=== PATIENT | male | born 1935 | race Caucasian/White ===

== ENCOUNTER 2020-10-13 11:01 | Inpatient (IN) | payer OTHER ==
[~2020-10-13] VITALS: Ht 172.7 cm
[~2020-10-13 11:01] MED LIST: ALTACE1.25 MG; ASPIR-LOW81 MG PO; ATORVASTATIN CA20 MG PO; DILTIAZE PO; DILTIAZEM HCL30 MG PO; LANTUS; LIPITOR20 MG PO; METHIMAZOLE10 MG PO; METOPROLOL SUC100 MG PO; METOPROLOL TAR100 MG PO; NEURONTIN300 MG PO; PROBIOTIC1 EAC1 PO
--- NOTE | 2020-10-13 11:08 | NUR ---
SE RECIBE PACIENTE ALERTE Y ORIENTADO. PACIENTE REFIERE VENIR POR QUE TIENE LA HEMOGLOBINA BAJA YA QUE SE REALIZO UN CBC EL JERAD DE HOY Y EL MISMO SALIO EN 6.3 ENVIADO POR DRA. GUATAM.
--- NOTE | 2020-10-13 12:21 | NUR ---
SE EJECTUA ORDEN MEDICA EN YBARRA TOTALIDAD. PACIENTE SE LE REALIZAN MUESTRAS DE OLGA, ADMINISTRACION DE TERAPIA INTRAVENOSA. SE LASHAUN TUBOS PILOTOS YA QUE PACIENTE TIENE ORDEN MEDICA DE TRANFUNDIR 3 UNIDADES DE PRBC FRACCIONADAS. SE REALIZA LLAMADA A BANCO DE [place] PARA SABER SI PACIENTE TIENE RECORDS PREVIO Y AL MOMENTO EL MISMO CUENTA YA CON EXPEDIENTE EN BANCO DE [place]. SE REQUISA PARA 3 UNIDADEAS DE OLGA FRACCIONADAS. FAMILIAR DE PACIENTE FIRMA CONSENTIMIENTO Y MEDICO TAMBIEN, DR. GUILLEN. SE ROTULAN TUBOS PILOTOS DE MANERA CORRECTA Y SE LLEVA A B[place] EN DONDE SON COTEJADAS POR SR. CANDELARIA DE BANCO DE [place] CUAL REFIERE ESTA TODO DE MANERA CORRECTA. AL MOMENTO SE MANTIENE PACIENTE EN OBSERVACION POR CAMBIOS EN CONDICON Y EN ESPERA DE SER TRANFUNDIDO.
[2020-10-14] MEDS ORDERED: INTEGRA PLUS C1 EACH (14:18)
[2020-10-14] MEDS ORDERED: METOPROLOL SUC100 MG (14:18)
[2020-10-14] MEDS ORDERED: FOLIC ACID1 MG (14:18)
[2020-10-14] MEDS ORDERED: DILTIAZEM HCL30 MG (14:18)
[2020-10-18] MEDS ORDERED: INTEGRA PLUS C1 EACH PO (13:20)
[2020-10-18] MEDS ORDERED: TOPROL XL100 M1 PO (13:20)
[2020-10-18] MEDS ORDERED: FAMOTIDINE20 MG PO (13:20)
[2020-10-18] MEDS ORDERED: AMLODIPINE BESYL5 MG PO (13:20)
[2020-10-18] MEDS ORDERED: B Complex CAPSULE PO (13:20)
[2020-10-18] MEDS ORDERED: APRESOLINE 10MG10 MG PO (13:20)
[2020-10-18] MEDS ORDERED: Neurin-Sl Tablet Sl SL (13:20)
[2020-10-18] MEDS ORDERED: ST. JOSEPH ASPI81 M2 PO (13:20)
[2020-10-18] MEDS ORDERED: DILTIAZEM HCL30 MG PO (13:20)
[2020-10-18] MEDS ORDERED: LIPITOR20 MG PO (13:20)
[2020-10-18] MEDS ORDERED: POM (MEDICAMENTO EN PO (13:20)
== END 2020-10-18 13:41 | disposition home or self-care (01) | DRG 683 ==
LOC: ER 11:01 → MEDI 19:54
PROVIDERS: ADMIT Internal Medicine; ATTEND Internal Medicine
PROC: 30233N1 Transfusion of Nonautologous Red Blood Cells into Peripheral Vein, Percutaneous Approach (ICD-10-PCS; principal; 2020-10-13)
DX: I13.10 Hypertensive heart and chronic kidney disease without heart failure, with stage 1 through stage 4 chronic kidney disease, or unspecified chronic kidney disease (principal); N18.4 Chronic kidney disease, stage 4 (severe); I48.20 Chronic atrial fibrillation, unspecified; D63.1 Anemia in chronic kidney disease; E11.22 Type 2 diabetes mellitus with diabetic chronic kidney disease; Z20.822 Contact with and (suspected) exposure to COVID-19

== ENCOUNTER 2021-03-11 08:25 | Inpatient (IN) | payer OTHER ==
[~2021-03-11] VITALS: Ht 172.7 cm; Wt 90.7 kg
[~2021-03-11 08:25] MED LIST changes: +AMLODIPINE BESYL5 MG PO; +APRESOLINE 10MG10 MG PO; +B Complex CAPSULE PO; +DILTIAZEM HCL30 MG; +FAMOTIDINE20 MG PO; +FOLIC ACID1 MG; +INTEGRA PLUS C1 EACH; +INTEGRA PLUS C1 EACH PO; +METOPROLOL SUC100 MG; +Neurin-Sl Tablet Sl SL; +POM (MEDICAMENTO EN PO; +ST. JOSEPH ASPI81 M2 PO; +TOPROL XL100 M1 PO
[2021-03-11] MEDS ORDERED: LIPITOR40 M1 (08:46)
[2021-03-11] MEDS ORDERED: CARDIZEM30 MG (08:46)
[2021-03-11] MEDS ORDERED: TOPROL XL100 M1 (08:47)
[2021-03-11] MEDS ORDERED: PROTONIX40 M1 (08:47)
[2021-03-11] MEDS ORDERED: HYDRALAZINE HCL50 MG (08:47)
== END 2021-03-13 14:05 | disposition home or self-care (01) | DRG 699 ==
LOC: ER 08:25 → MEDI 21:01
PROVIDERS: ADMIT Internal Medicine; ATTEND Internal Medicine
PROC: 30233N1 Transfusion of Nonautologous Red Blood Cells into Peripheral Vein, Percutaneous Approach (ICD-10-PCS; principal; 2021-03-11)
DX: E11.22 Type 2 diabetes mellitus with diabetic chronic kidney disease (principal); C19 Malignant neoplasm of rectosigmoid junction; N18.4 Chronic kidney disease, stage 4 (severe); Z79.4 Long term (current) use of insulin; I12.9 Hypertensive chronic kidney disease with stage 1 through stage 4 chronic kidney disease, or unspecified chronic kidney disease; Z20.822 Contact with and (suspected) exposure to COVID-19

== ENCOUNTER 2021-05-05 18:10 | Inpatient (IN) | payer OTHER ==
[~2021-05-05] VITALS: Ht 175.3 cm; Wt 90.3 kg
[~2021-05-05 18:10] MED LIST changes: +CARDIZEM30 MG; +HYDRALAZINE HCL50 MG; +LIPITOR40 M1; +PROTONIX40 M1; +TOPROL XL100 M1
[2021-05-05] MEDS ORDERED: VAZALORE81 MG (19:54)
[2021-05-05] MEDS ORDERED: ALTACE1.25 MG (19:54)
[2021-05-05] MEDS ORDERED: NEURIN (19:55)
[2021-05-05] MEDS ORDERED: [UNRECOGNIZED DRUG - OTHER] (19:56)
--- NOTE | 2021-05-05 19:57 | NUR ---
PTE SE RECIBE POR HEMOGLOBINA BAJA REFIERE PTE Y FAMILIAR.
--- NOTE | 2021-05-05 21:26 | NUR ---
MITCHELL EVALUA PTE. SE ORIENTA A PTE SOBRE ORDENES MEDICAS Y TRATAMIENTO. SE EXTRAEN MUESTRAS Y SE CANALIZA PTE BAJO MEDIDAS ASEPTICAS POR RN.YSALVADORS. SE COLECTAN TUBOS PILOTOS Y SE REQUISA CON BANCO [place] DE SERVICIOS MUT[employer] 3 UNIDADES DE PRBC FRACCIONADAS. PERSONAL DE SERVICIOS MUTUOS RECOGE TUBOS A LAS 9:27 PM.
== END 2021-05-07 09:52 | disposition home or self-care (01) | DRG 811 ==
LOC: ER 18:10 → MEDI 05-06 02:16
PROVIDERS: ADMIT Internal Medicine; ATTEND Internal Medicine
PROC: 30233N1 Transfusion of Nonautologous Red Blood Cells into Peripheral Vein, Percutaneous Approach (ICD-10-PCS; principal; 2021-05-06)
DX: D64.9 Anemia, unspecified (principal); N18.6 End stage renal disease; I12.0 Hypertensive chronic kidney disease with stage 5 chronic kidney disease or end stage renal disease; C19 Malignant neoplasm of rectosigmoid junction; E11.22 Type 2 diabetes mellitus with diabetic chronic kidney disease; Z20.822 Contact with and (suspected) exposure to COVID-19; Z99.2 Dependence on renal dialysis; Z79.4 Long term (current) use of insulin

== ENCOUNTER 2021-06-19 17:09 | Inpatient (IN) | payer OTHER ==
[~2021-06-19] VITALS: Ht 175.3 cm; Wt 99.8 kg
[~2021-06-19 17:09] MED LIST changes: +NEURIN; +VAZALORE81 MG; +[UNRECOGNIZED DRUG - OTHER]
--- NOTE | 2021-06-19 17:22 | NUR ---
PTE ALERTA,ESTABLE Y ORIENTADOL.FOZIA REFIERE QUE HOY A LAS 2:40PM LO LLAMARON DEL CENTRO DE DIALISIS QUE FOZIA PRECENTA LA HEMOGLOBINA EN 6.
--- NOTE | 2021-06-19 19:06 | NUR ---
PACIENTE EVALUADO POR . SE LE ORIENTA SOBRE TRATAMIENTO A SEGUIR. SE EXTRAE MUESTRAS DE LABORATORIO. SE MANTIENE BAJO OBSERVACION POR CAMBIOS.
--- NOTE | 2021-06-19 20:56 | NUR ---
SE REQUISA 2 UNIDADES DE PRBC COMPLETAS PARA TRANFUNDIR INTRADIALISIS. PACIENTE ALERTA, CONCIENTE Y ORIENTADO X3. SE REALIZO LLAMADA A BANCO DE [place] Y SE LOGRA CONTACTO CON [facility]. BAUZO A LA CUAL SE LE NOTIFICA QUE SE REQUISARA 2 UNIDADES DE OL[place] COMPLETAS PARA TRANFUNDIR INTRADIALISIS. LAS MUESTRAS SON TOMADAS Y ENVIADAS A LABORATORIO. SE LE REALIZA CANALIZACION DE VENA CON ANGIO #20 PARA TRANFUCION.
[2021-06-20] MEDS ORDERED: ALLOPURINOL300 MG (08:29)
== END 2021-06-21 14:03 | disposition home or self-care (01) | DRG 682 ==
LOC: ER 17:09 → MEDI 23:32
PROVIDERS: ADMIT Internal Medicine; ATTEND Internal Medicine
PROC: 30233N1 Transfusion of Nonautologous Red Blood Cells into Peripheral Vein, Percutaneous Approach (ICD-10-PCS; principal; 2021-06-20)
PROC: 4A12X4Z Monitoring of Cardiac Electrical Activity, External Approach (ICD-10-PCS; 2021-06-20)
DX: I12.0 Hypertensive chronic kidney disease with stage 5 chronic kidney disease or end stage renal disease (principal); N18.6 End stage renal disease; N17.8 Other acute kidney failure; D63.1 Anemia in chronic kidney disease; E11.22 Type 2 diabetes mellitus with diabetic chronic kidney disease; Z99.2 Dependence on renal dialysis; Z79.4 Long term (current) use of insulin; E03.8 Other specified hypothyroidism; E78.49 Other hyperlipidemia; Z20.822 Contact with and (suspected) exposure to COVID-19

== ENCOUNTER 2021-07-10 17:43 | Inpatient (IN) | payer OTHER ==
[~2021-07-10] VITALS: Ht 172.7 cm; Wt 99.8 kg
[~2021-07-10 17:43] MED LIST changes: +ALLOPURINOL300 MG
[2021-07-11] MEDS ORDERED: PRE PROTEIN1 EACH (10:40)
[2021-07-11] MEDS ORDERED: ABANEU-SL TABL1 EACH (10:41)
== END 2021-07-12 12:51 | disposition home or self-care (01) | DRG 811 ==
LOC: ER 17:43 → MEDJ 07-11 07:10 → MEDI 07-11 07:10 → MEDJ 07-11 11:49
PROVIDERS: ADMIT Internal Medicine; ATTEND Internal Medicine
PROC: 30233N1 Transfusion of Nonautologous Red Blood Cells into Peripheral Vein, Percutaneous Approach (ICD-10-PCS; principal; 2021-07-11)
DX: D64.9 Anemia, unspecified (principal); N18.6 End stage renal disease; I12.0 Hypertensive chronic kidney disease with stage 5 chronic kidney disease or end stage renal disease; E05.80 Other thyrotoxicosis without thyrotoxic crisis or storm; D63.1 Anemia in chronic kidney disease; E11.22 Type 2 diabetes mellitus with diabetic chronic kidney disease; Z99.2 Dependence on renal dialysis; Z79.4 Long term (current) use of insulin; E78.49 Other hyperlipidemia; Z20.822 Contact with and (suspected) exposure to COVID-19

== ENCOUNTER 2021-07-31 18:05 | Inpatient (IN) | payer OTHER ==
[~2021-07-31] VITALS: Ht 172.7 cm; Wt 56.2 kg
[~2021-07-31 18:05] MED LIST changes: +ABANEU-SL TABL1 EACH; +PRE PROTEIN1 EACH
[2021-08-02] MEDS ORDERED: INTEGRA PLUS C1 EAC1 (08:25)
[2021-08-02] MEDS ORDERED: FOLIC ACID1 MG (08:25)
[2021-08-02] MEDS ORDERED: CYANOCOBAL1000 MCG/1 (08:25)
[2021-08-02] MEDS ORDERED: INTEGRA PLUS C1 EACH (08:25)
== END 2021-08-02 16:47 | disposition home or self-care (01) | DRG 682 ==
LOC: ER 18:05 → MEDI 22:53 → MEDJ 22:53
PROVIDERS: ADMIT Internal Medicine; ATTEND Internal Medicine
PROC: 3E0F7SF Introduction of Other Gas into Respiratory Tract, Via Natural or Artificial Opening (ICD-10-PCS; 2021-07-31)
PROC: 30233N1 Transfusion of Nonautologous Red Blood Cells into Peripheral Vein, Percutaneous Approach (ICD-10-PCS; principal; 2021-08-01)
PROC: 5A1D70Z Performance of Urinary Filtration, Intermittent, Less than 6 Hours Per Day (ICD-10-PCS; 2021-08-01)
DX: I12.0 Hypertensive chronic kidney disease with stage 5 chronic kidney disease or end stage renal disease (principal); N18.6 End stage renal disease; D63.1 Anemia in chronic kidney disease; D46.B Refractory cytopenia with multilineage dysplasia and ring sideroblasts; E11.22 Type 2 diabetes mellitus with diabetic chronic kidney disease; Z99.2 Dependence on renal dialysis; Z79.4 Long term (current) use of insulin; Z20.822 Contact with and (suspected) exposure to COVID-19

== ENCOUNTER 2021-08-28 19:09 | Inpatient (IN) | payer OTHER ==
[~2021-08-28] VITALS: Ht 172.7 cm; Wt 104.3 kg
[~2021-08-28 19:09] MED LIST changes: +CYANOCOBAL1000 MCG/1; +INTEGRA PLUS C1 EAC1
--- NOTE | 2021-08-28 19:31 | NUR ---
SE RECIBE PTE ALERTA, ORIENTADO EN JULIEN ANA ESFERAS EL CUAL REFIERE QUE DE EL CENTRO DE DIALISIS LO CONTACTARON PARA QUE VISITARA LA NABEEL DE EMERGENCIAS PORQUE TENIA HEMOGLOBINA EN 7.4.
--- NOTE | 2021-08-28 20:45 | NUR ---
PACIENTE EVALUADO POR DR GUILLEN QUIEN [place] MEDICO. JONE WILLS ORIENTA A PACIENTE SOBRE EL MISMO Y REFIERE ENTENDER. LE HARRIET MUESTRAS DE LABORATORIO Y LE CANALIZA BAJO MEDIDAS ASEPTICAS. AREA DE VENOPUNCION PATENTE Y ANSLEY DE EDEMA. LE HARRIET MUESTRAS BOBBY PARA REQUIZAR OLGA QUE ESTA PENDIENTE. SE MISBAH PACIENTE BAJO OBSERVACION POR CAMBIOS SIGNIFICATIVOS EN YBARRA [place].
--- NOTE | 2021-08-28 21:37 | NUR ---
SE NOTIFICAN TUBOS PILOTOS PARA 2 UNIDADES PRBC FRACC EN HOLD A MS BAUZO DE BANCO DE [place] DE AUXILIO MUTUO.
== END 2021-08-30 11:27 | disposition home or self-care (01) | DRG 811 ==
LOC: ER 19:09 → SEC-K 23:15 → MEDJ 08-29 13:27
PROVIDERS: ADMIT Internal Medicine; ATTEND Internal Medicine
PROC: 30233N1 Transfusion of Nonautologous Red Blood Cells into Peripheral Vein, Percutaneous Approach (ICD-10-PCS; principal; 2021-08-29)
DX: D46.Z Other myelodysplastic syndromes (principal); N18.6 End stage renal disease; I12.0 Hypertensive chronic kidney disease with stage 5 chronic kidney disease or end stage renal disease; D46.B Refractory cytopenia with multilineage dysplasia and ring sideroblasts; D63.1 Anemia in chronic kidney disease; I12.9 Hypertensive chronic kidney disease with stage 1 through stage 4 chronic kidney disease, or unspecified chronic kidney disease; E11.22 Type 2 diabetes mellitus with diabetic chronic kidney disease; N18.9 Chronic kidney disease, unspecified; Z79.4 Long term (current) use of insulin; Z99.2 Dependence on renal dialysis; Z20.822 Contact with and (suspected) exposure to COVID-19

== ENCOUNTER 2021-09-13 09:51 | Emergency (ER) | payer OTHER ==
[~2021-09-13] VITALS: Ht 172.7 cm; Wt 88.5 kg
== END 2021-09-13 14:08 | disposition home or self-care (01) ==
LOC: ER 09:51
DX: S30.0XXA Contusion of lower back and pelvis, initial encounter (principal); W18.30XA Fall on same level, unspecified, initial encounter; Y93.9 Activity, unspecified; Y92.019 Unspecified place in single-family (private) house as the place of occurrence of the external cause; Y99.9 Unspecified external cause status; I10 Essential (primary) hypertension; M62.830 Muscle spasm of back; Z87.891 Personal history of nicotine dependence

== ENCOUNTER 2021-09-18 18:00 | Inpatient (IN) | payer OTHER ==
[~2021-09-18] VITALS: Ht 175.3 cm; Wt 99.8 kg
[2021-09-19] MEDS ORDERED: INTEGRA PLUS C1 EAC1 (10:54)
[2021-09-19] MEDS ORDERED: ALLOPURINOL300 MG (10:54)
[2021-09-19] MEDS ORDERED: AMLODIPINE BESYL5 MG (10:55)
[2021-09-19] MEDS ORDERED: VIRT-CAPS SOFTGE1 MG (10:55)
[2021-09-19] MEDS ORDERED: CYANOCOBAL1000 MCG/1 (10:55)
[2021-09-19] MEDS ORDERED: FERROUS SULFAT325 MG (10:55)
[2021-09-19] MEDS ORDERED: SUCRALFATE1 GM (10:55)
[2021-09-19] MEDS ORDERED: FOLIC ACID1 MG (10:55)
== END 2021-09-20 09:41 | disposition home or self-care (01) | DRG 682 ==
LOC: ER 18:00 → SEC-K 09-19 08:29 → MEDJ 09-19 09:56
PROVIDERS: ADMIT Internal Medicine; ATTEND Internal Medicine
PROC: 30233N1 Transfusion of Nonautologous Red Blood Cells into Peripheral Vein, Percutaneous Approach (ICD-10-PCS; principal; 2021-09-19)
DX: I12.0 Hypertensive chronic kidney disease with stage 5 chronic kidney disease or end stage renal disease (principal); N18.6 End stage renal disease; N17.8 Other acute kidney failure; N18.4 Chronic kidney disease, stage 4 (severe); E11.22 Type 2 diabetes mellitus with diabetic chronic kidney disease; Z99.2 Dependence on renal dialysis; Z79.4 Long term (current) use of insulin; Z20.822 Contact with and (suspected) exposure to COVID-19; D63.1 Anemia in chronic kidney disease; D63.8 Anemia in other chronic diseases classified elsewhere; D46.B Refractory cytopenia with multilineage dysplasia and ring sideroblasts

== ENCOUNTER 2021-10-09 17:43 | Inpatient (IN) | payer OTHER ==
[~2021-10-09] VITALS: Ht 172.7 cm; Wt 97.5 kg
[~2021-10-09 17:43] MED LIST changes: +AMLODIPINE BESYL5 MG; +FERROUS SULFAT325 MG; +SUCRALFATE1 GM; +VIRT-CAPS SOFTGE1 MG
== END 2021-10-11 21:27 | disposition home or self-care (01) | DRG 682 ==
LOC: ER 17:43 → SEC-K 10-10 08:50 → MEDJ 10-10 08:50
PROVIDERS: ADMIT Internal Medicine; ATTEND Internal Medicine
PROC: 30233N1 Transfusion of Nonautologous Red Blood Cells into Peripheral Vein, Percutaneous Approach (ICD-10-PCS; principal; 2021-10-10)
PROC: 8E0ZXY6 Isolation (ICD-10-PCS; 2021-10-10)
DX: I12.0 Hypertensive chronic kidney disease with stage 5 chronic kidney disease or end stage renal disease (principal); N18.6 End stage renal disease; N17.8 Other acute kidney failure; E11.22 Type 2 diabetes mellitus with diabetic chronic kidney disease; Z99.2 Dependence on renal dialysis; D63.1 Anemia in chronic kidney disease; D46.B Refractory cytopenia with multilineage dysplasia and ring sideroblasts; E78.49 Other hyperlipidemia; D46.Z Other myelodysplastic syndromes; Z20.822 Contact with and (suspected) exposure to COVID-19

== ENCOUNTER 2021-11-01 16:41 | Inpatient (IN) | payer OTHER ==
[~2021-11-01] VITALS: Ht 172.7 cm; Wt 103.9 kg
--- NOTE | 2021-11-01 17:01 | NUR ---
PACIENTE REFIERE QUE TIENE LA HEMOGLOBINA BAJA 7.5 Y TIENE DEBILIDAD, PACIENTE DE DIALISIS.
--- NOTE | 2021-11-01 19:20 | NUR ---
SE ORIENTA AL PACIENTE SOBRE EL TX. SE EXTRAEN MUESTRAS DE [place] BAJO MEDIDAS ASEPTICAS SE ROTULAN Y ENVIAN AL LABORATORIO. SE EXTRAEN MUESTRAS PARA TUBOS PILOTOS. SE REQUIZAN A BANCO DE [place] DE SERVICIOS MUTUOS 2PRBC PARA TRANSFUNDIR A MR. BALL. SE CANALIZA Y COLOCA H/L. PTE FIRMA PERMISO PARA TRANSFUNDIR.
--- NOTE | 2021-11-02 02:30 | NUR ---
ME COMUNICO CON BANCO DE [place] CON ANGELICA PARA VERIFICAR ESTADO DE 2 UNIDADES DE PRBC LAS CUALES NO ESTAN DISPONIBLES AL MOMENTO.
--- NOTE | 2021-11-02 07:21 | NUR ---
SE RECIBE PTE DEL TURNO ANTERIOR, ALERTA Y ORIENTADO EN JULIEN ANA ESFERAS, UBICADO EN GEMMA NIVEL MAS BAJO, BAL DE IDENTIFICACION Y BARANDAS ELEVADAS POR PRECAUCION. SE OBSERVA CON BUEN PATRON RESPIRATORIO Y PIEL TIBIA AL TACTO. S/L PATENTE Y ANSLEY DE EDEMA O ERITEMA. PENDIENTE A TRANSFUNDIR 2 U DE PRBC, LAS CUALES SE ENCUENTRAN DISPONIBLE. PENDIENTE CONSULTA CON DR KEARNEY (MEDICINA INTERNA). SE MANTIENE BAJO OBSERVACION.
--- NOTE | 2021-11-02 08:10 | NUR ---
SE TRANFUNDE A PACIENTE Y SE ORIENTA A PACIENTE Y FAMILIAR PRESENTE, LA UNIDAD EN BUSCADA A LAS 7:35AM CON LA SEVEN. RUDY EN BANCO DE [place]. SE REALIZO DOBLE COTEJO CON FELIPE GOMEZ Y SE COMIENZA A TRANFUNDIR A LAS 7:40AM. SE ORIENTA A PACIENTE VITALES SERAN MONITOREADOS CADA 15 MINUTOS. AL MOMENTO PACIENTE TOLERA Y PRESENTA QUEJA ALGUNA. PACIENTE REFIERE INFORMACION DEMOGRAFICA ESTA CORRECTA Y YBARRA NOMBRE ESTA ADITYA ESCRITO.
[2021-11-03] MEDS ORDERED: INTEGRA PLUS C1 EAC1 (13:15)
== END 2021-11-03 22:35 | disposition home or self-care (01) | DRG 682 ==
LOC: ER 16:41 → SEC-K 11-02 10:03 → SURH 11-02 10:03
PROVIDERS: ADMIT Internal Medicine; ATTEND Internal Medicine
PROC: 30233N1 Transfusion of Nonautologous Red Blood Cells into Peripheral Vein, Percutaneous Approach (ICD-10-PCS; principal; 2021-11-02)
DX: I12.0 Hypertensive chronic kidney disease with stage 5 chronic kidney disease or end stage renal disease (principal); N18.6 End stage renal disease; N17.8 Other acute kidney failure; N18.4 Chronic kidney disease, stage 4 (severe); N39.0 Urinary tract infection, site not specified; E11.22 Type 2 diabetes mellitus with diabetic chronic kidney disease; E11.65 Type 2 diabetes mellitus with hyperglycemia; Z99.2 Dependence on renal dialysis; Z79.4 Long term (current) use of insulin; D46.B Refractory cytopenia with multilineage dysplasia and ring sideroblasts; D63.1 Anemia in chronic kidney disease; D46.Z Other myelodysplastic syndromes; Z20.822 Contact with and (suspected) exposure to COVID-19

== ENCOUNTER 2022-02-28 21:11 | Inpatient (IN) | payer OTHER ==
[~2022-02-28] VITALS: Ht 172.7 cm; Wt 86.2 kg
== END 2022-03-05 07:34 | disposition home or self-care (01) | DRG 683 ==
LOC: ER 21:11 → MEDJ 03-01 16:26
PROVIDERS: ADMIT Internal Medicine; ATTEND Internal Medicine
PROC: 30233N1 Transfusion of Nonautologous Red Blood Cells into Peripheral Vein, Percutaneous Approach (ICD-10-PCS; principal; 2022-03-03)
DX: I12.9 Hypertensive chronic kidney disease with stage 1 through stage 4 chronic kidney disease, or unspecified chronic kidney disease (principal); N17.9 Acute kidney failure, unspecified; N18.4 Chronic kidney disease, stage 4 (severe); D63.8 Anemia in other chronic diseases classified elsewhere; E11.22 Type 2 diabetes mellitus with diabetic chronic kidney disease; D46.9 Myelodysplastic syndrome, unspecified; Z20.822 Contact with and (suspected) exposure to COVID-19

== ENCOUNTER 2022-07-08 11:01 | Emergency (ER) | payer OTHER ==
[~2022-07-08] VITALS: Ht 175.3 cm; Wt 87.5 kg
[2022-07-08] MEDS ORDERED: LEVOTHYROXINE25 MC1 PO (12:09)
== END 2022-07-08 17:10 | disposition home or self-care (01) ==
LOC: ER 11:01
DX: E11.22 Type 2 diabetes mellitus with diabetic chronic kidney disease (principal); I12.0 Hypertensive chronic kidney disease with stage 5 chronic kidney disease or end stage renal disease; N18.6 End stage renal disease; Z99.2 Dependence on renal dialysis

== ENCOUNTER 2022-07-11 11:33 | Emergency (ER) | payer OTHER ==
[~2022-07-11] VITALS: Ht 175.3 cm; Wt 87.5 kg
[~2022-07-11 11:33] MED LIST changes: +LEVOTHYROXINE25 MC1 PO
== END 2022-07-11 17:35 | disposition home or self-care (01) ==
LOC: ER 11:33
DX: D46.9 Myelodysplastic syndrome, unspecified (principal); E11.22 Type 2 diabetes mellitus with diabetic chronic kidney disease; N18.6 End stage renal disease; Z99.2 Dependence on renal dialysis